=== PATIENT | female | born 1985 | race Native Hawaiian/Other Pacific Islander ===

== ENCOUNTER 2020-06-20 08:59 | Outpatient (CLI) | payer BC, OTHER ==
[~2020-06-20 08:59] MED LIST: ADIPEX PO; CELEXA20 MG PO; MEDR150I3 IM
== END 2020-06-20 21:13 | disposition home or self-care (01) ==
LOC: INF 08:59
PROVIDERS: ATTEND Internal Medicine
DX: Z23 Encounter for immunization (principal)
CPT/HCPCS: 96372

== ENCOUNTER 2020-07-18 08:43 | Outpatient (CLI) | payer BC, OTHER | END 2020-07-18 19:46 | disposition home or self-care (01) | LOC: INF 08:43 | PROVIDERS: ATTEND Internal Medicine | DX: Z23 Encounter for immunization (principal) | CPT/HCPCS: 96372 ==